=== PATIENT | male | born 1960 | race American Indian/Alaskan Native ===

== ENCOUNTER 2018-10-31 22:46 | Emergency (ER) | payer OTHER ==
[2018-10-31] MEDS ORDERED: Acetaminophen/Codeine 300-30 MG Tab PO ONE (22:47)
--- NOTE | 2018-10-31 23:07 | EDM.PDOC ---
ED HPI GENERAL MEDICAL PROBLEM - General Chief Complaint: ENT Problem Stated Complaint: TOOTHACHE Time Seen by Provider: 10/31/18 23:03 Source of Information: Reports: Patient History Limitations: Reports: No Limitations - History of Present Illness INITIAL COMMENTS - FREE TEXT/NARRATIVE: Tooth pain x 1 hr. Piece of filling came off. Worse will cold/temp. Nothing helps.Had a coronary stent placed on Sunday,so unable to take NSAIDs. - Related Data Allergies Allergy/AdvReac Type Severity Reaction Status Date / Time No Known Allergies Allergy Verified 10/31/18 23:01 ED ROS ENT - Review of Systems Review Of Systems: ROS reveals no pertinent complaints other than HPI. ED EXAM, ENT - Physical Exam Exam: See Below Text/Narrative:: Tooth #28 has a partial dental filing. Cavity noted,exposed Exam Limited By: No Limitations General Appearance: Alert, WD/WN, No Apparent Distress Ears: Normal External Exam Nose: Normal Inspection Mouth/Throat: Normal Inspection, Normal Gums, Dental Pain, Dental Tenderness. No: Bleeding, Dental Abcess, Throat Swelling, Tonsillar Exudates, Uvular Deviation, Uvular Edema Course - Vital Signs Last Recorded V/S: Last Vital Signs Temp 98.3 F 10/31/18 23:01 Pulse 57 L 10/31/18 23:01 Resp 18 10/31/18 23:01 BP 115/63 10/31/18 23:01 Pulse Ox 98 10/31/18 23:01 Departure - Departure Time of Disposition: 23:05 Disposition: Home, Self-Care 01 Condition: Good Clinical Impression: Pain, dental - Discharge Information Referrals: PCP,None [Primary Care Provider] - - Problem List & Annotations (1) Pain, dental SNOMED Code(s): 77996223 Code(s): K08.89 - OTHER SPECIFIED DISORDERS OF TEETH AND SUPPORTING STRUCTURES Status: Acute - Problem List Review Problem List Initiated/Reviewed/Updated: Yes - Assessment/Plan Plan: Tylenol #3 tid prn. Follow up with dentist.
== END 2018-10-31 23:13 | disposition home or self-care (01) ==
LOC: FB.ED 22:46
DX: K08.89 Other specified disorders of teeth and supporting structures (principal)
CPT/HCPCS: 99282; A9270-GY